=== PATIENT | female | born 2000 | race Hispanic/Latino ===

== ENCOUNTER 2023-11-01 12:02 | Emergency (ER) | payer OTHER, SELFPAY ==
[2023-11-01 12:05] VITALS: BP 105/70
[2023-11-01 12:31] LABS: COVID-19 Antigen Negative (Negative)
[2023-11-01] MEDS: MOTRIN 600 MG PO (13:48)
[2023-11-01] MEDS: ZOFRAN ODT (ORALLY DISINTEGRATING) 4 MG PO (13:48)
--- NOTE | 2023-11-01 13:53 | ED.GENMED ---
History of Present Illness
General
Chief Complaint: Cold/Flu/URI Symptoms
Source: patient
Exam Limitations: none
Time Seen by Provider: 11/01/23 12:45
Nursing documentation reviewed up to this point in time: agreed with
Travel History
Have you had any contact with someone who has COVID-19?: No
Do you have any symptoms of coronavirus? Fever > 100 degrees, chills, cough, shortness of breath, sore throat, loss of taste or smell, muscle aches, or headache?: Yes
Symptoms:: loss of taste
History of Present Illness
History of Present Illness:
23 y/o F with no pmh
here with 8 days URI sxs
headache, nasal congestion, sore throat, dry cough. then today had 4 episodes vomiting
lost sense of taste and smell earlier this week
has tried otc meds motrin nothing today
last vomit was 9 am
no abdominal pain, diarrhea
lmp 2 weeks ago
no concern for
Past History
Past History
ED Past Medical History: None
ED Past Surgical History: None
Social History
Tobacco: Non-smoker
Alcohol: None
Personal: Single
Living: with family
Employment: Employed
Review of Systems
Review of Systems
Allergies reviewed?: Yes
All Other Systems: Not applicable
Phy Exam
Physical Exam
Physical Exam:
GENERAL: Alert , in no apparent distress
EYE: pupils equal and reactive
NECK: Supple
ENT: b/l TM s clear, pharynx nonerythematous no tonsillar hypertrophy or exudates
no sinus tenderness
CARDIAC: Regular rate and rhythm, no edema
LUNGS: Clear breath sounds bilaterally, no acute respiratory distress, no wheezes/rales/rhonchi, occ cough
ABDOMEN: Soft, without focal tenderness, no r/g, no cvat, normal bowel sounds, no mcburney's point tenderness
NEUROLOGICAL: Alert and oriented, no focal neuro deficits
SKIN: Warm and dry, skin intact.
MUSCULOSKELETAL: No edema, well perfused.
PSYCH: Normal and appropriate interaction.
Course
Orders/Labs/Results
Orders:
Orders
11/01/23 12:10
COVID-19 Antigen Urgent
Source: Nasal Swab
11/01/23 13:39
Ibuprofen [Motrin] 600 mg PO NOW STA
Ondansetron Orally Disint [Zofran Odt (Orally Disintegrating)] 4 mg PO NOW STA
Vital Signs
Initial and Last Documented VS:
Initial Vital Signs
Temp Pulse Resp BP Pulse Ox
98.2 F 94 16 105/70 100
11/01/23 12:05 11/01/23 12:05 11/01/23 12:05 11/01/23 12:05 11/01/23 12:05
Last Documented Vital Signs
Temp Pulse Resp BP Pulse Ox
99 F 80 16 106/85 98
11/01/23 14:36 11/01/23 14:36 11/01/23 12:05 11/01/23 14:36 11/01/23 14:36
MDM/Problems Addressed
Differential Diagnosis Includes:
uri, covid, flu, sinusitis
MDM/Problems Addressed:
23 y/o F with no sig pmh
here with uri sxs x 8 days, headache, sore throat, congestion, dry cough and then 4 episodes vomiting this morning
no nausea now, no abdominal pain
no meds taken today
lost sense of taste/smell
on exzam well appearing
hydrated
no HEENT findings
abdomen nontender
lungs clear
likely viral
covid neg
no adventitious sounds to suggest pna
will po challenge after zofran ODT
anticipate d/c home with abx in 2 days to start if sypmtoms are not improved
*Critical Care Note
Total Time (30-74mins, 75-104mins- exclusive of procedures): Not Applicable
ED Attending Note
-
Portions of this chart may have been created with voice recognition software.� Occasional wrong word or��sound alike� substitutions may have occurred due to the inherent limitations of voice recognition software.
Discharge Plan
Departure
Patient Disposition: Home (Routine Discharge)
Date of Disposition: 11/01/23
Time of Disposition: 14:45
Patient with high blood pressure during this ER visit?: No
Condition: Fair
Covid-19: Not Applicable
Discharge Problem:
Upper respiratory infection
Instructions: Viral Upper Respiratory Infection, Adult (DC)
Prescriptions:
New
amoxicillin 875 mg tablet
875 mg PO BID Qty: 20 0RF
No Action
penicillin V potassium 500 mg tablet
500 mg PO BID 10 Days Qty: 20 0RF
Referrals:
Miles Otero MD [Family Provider] - Follow up in 2-3 days
Activity Restrictions/Additional Instructions:
you probably have a virus upper respiratory infection. you tested negative for covid.
take tylenol 2 tabs every 6 hours as needed for fever/headache. use over the counter cough medication if you want (robitussin)
if you are still having symptoms by friday or friday, you can start the antibiotic amoxicillin twice a day for 10 days.
return for: continued vomiting, high fever, neck pain, rash, trouble breathing or any concerns
Probablemente tenga wendy infecci�n viral de las v�as respiratorias superiores. tu prueba de covid fue negativa.
tome 2 tabletas de Tylenol cada 6 horas seg�n sea necesario para la fiebre o el dolor de abraham. use medicamentos para la tos de venta luis fernando si lo desea (robitussin)
Si todav�a tiene s�ntomas el osmel o el es, puede comenzar a amberly el antibi�jamila amoxicilina dos veces al d�a dana 10 d�as.
Regrese si: v�mitos continuos, fiebre katarina, dolor de tish, sarpullido, dificultad para respirar o cualquier inquietud.
Interventions
Interventions:
*Risk Screen - Suicide Last Done: 11/01/23 12:05
*General Assessment Last Done: 11/01/23 12:05
*Neglect/Abuse Screening Last Done: 11/01/23 12:05
ED- Fall Risk Assessment Last Done: 11/01/23 14:25
ED- Pulmonary Assessment Last Done: 11/01/23 14:25
Discharge Date and Time
Print Language: COLOMBIAN
[2023-11-01 14:36] VITALS: BP 106/85
== END 2023-11-01 15:10 | disposition home or self-care (01) ==
LOC: EMR 12:02
PROVIDERS: Student in an Organized Health Care Education/Training Program; EMERGENCY PHYSICIAN Emergency Medicine; FAMILY PHYSICIAN Family Medicine
DX: J06.9 Acute upper respiratory infection, unspecified (principal)
CPT/HCPCS: 99282; 87811